=== PATIENT | female | born 1995 | race Caucasian/White ===

== ENCOUNTER 2017-08-08 22:01 | Emergency (ER) | payer OTHER ==
[~2017-08-08] VITALS: Ht 165.1 cm; Wt 54.4 kg
[~2017-08-08 22:01] MED LIST: PREN-96 PO
[2017-08-08 22:08] VITALS: BP 125/55
[2017-08-09] MEDS ORDERED: KETOROLAC TROMETH 60MG/2ML VIAL IM ONE (01:00)
== END 2017-08-09 01:57 | disposition home or self-care (01) ==
LOC: EDBD 22:01 → ER 22:01
DX: S92.811A Other fracture of right foot, initial encounter for closed fracture (principal); Z88.6 Allergy status to analgesic agent; Z88.8 Allergy status to other drugs, medicaments and biological substances; W22.8XXA Striking against or struck by other objects, initial encounter; Y93.89 Activity, other specified; Y99.8 Other external cause status; Y92.89 Other specified places as the place of occurrence of the external cause
CPT/HCPCS: 73610; 73630; 96372; 99284; J1885